=== PATIENT | male | born 1965 | race Caucasian/White ===

== ENCOUNTER → 2018-03-10 | Outpatient (CLI) | payer MEDICAID ==
--- NOTE | 2018-03-10 13:51 | XR ---
EXAM TYPE: LUMBAR SPINE X RAY SERIES COMPARISON: NONE HISTORY: Back pain TECHNIQUE: 4 views are submitted. FINDINGS: Alignment is anatomic. The pedicles are intact. The transverse processes are intact. Could not excl ude a unilateral spondylolysis on the right at L5. There is a slight anterolisthesis and a vacuum dis c compatible severe degenerative disc disease. Hypertrophic spurring seen at multiple levels with mil d multilevel additional degenerative disc disease. IMPRESSION: 1. Vacuum disc and severe degenerative disc disease L5-S1 with suspected spondylolysis on the right a nd evidence of facet arthropathy. This likely results in foraminal encroachment and could be correlat ed with MRI as clinically warranted.
== END ==
LOC: RADXRYALE 13:29
PROVIDERS: ATTEND Internal Medicine
DX: M51.17 Intervertebral disc disorders with radiculopathy, lumbosacral region (principal); M46.96 Unspecified inflammatory spondylopathy, lumbar region
CPT/HCPCS: 72110

== ENCOUNTER 2022-10-01 10:19 | Day surgery (SDC) | payer BC, MEDICAID ==
[2022-09-26 17:01] VITALS: BMI 35.6
[~2022-10-01 10:19] MED LIST: LACTATED RINGERS 1,000 ML IV SCH; LIDOCAINE 1% (10MG/ML) FOR IV START INTRADERMA PRN
[2022-10-01 10:56] VITALS: TEMP 97.7
[2022-10-01] MEDS ORDERED: PROPOFOL 10 MG/ML 20 ML VIAL IV ONE (11:24)
[2022-10-01] MEDS ORDERED: LIDOCAINE 2% INJ 20 MG/ML (2 ML VIAL) ONE (11:24)
--- NOTE | 2022-10-01 11:41 | P.PCN ---
Date of Procedure: 10/01/22 Procedure(s) Performed: BRIEF HISTORY: Patient is a 56-year-old pleasant white male scheduled for an elective colonoscopy as a part of evaluation of prior history of colon polyps. Last colonoscopy was 8 years ago. PROCEDURE PERFORMED: Colonoscopy with biopsy. PREOPERATIVE DIAGNOSIS: History of colon polyps. IV sedation per Anesthesia. PROCEDURE: After informed consent was obtained, the patient, was brought into the endoscopy unit. IV sedation was administered by Anesthesia under continuous monitoring. Digital rectal examination was normal. Initially the Olympus CF-160 flexible video colonoscope was then inserted in the rectum, gradually advanced into the cecum without any difficulty. Careful examination was performed as the scope was gradually being withdrawn. Ileocecal valve and the appendiceal orifice were visualized and appeared normal. Prep was excellent. Mucosa of the cecum, ascending colon, appeared normal. In the transverse colon there was a 5 mm flat polyp that was removed by cold biopsy. Rest of the transverse colon, descending colon, sigmoid colon, and rectum appeared normal. Retroflexion was performed in the rectum and no lesions were seen. The patient tolerated the procedure well. IMPRESSION: 5 mm flat transverse colon polyp status post cold biopsy Rest of the colon appeared normal RECOMMENDATIONS: Findings of this examination were discussed with the patient as his family.. He was advised to follow with the biopsy sites. The biopsy reveals adenoma he can have a repeat colonoscopy in 5 years
[2022-10-01 11:48] VITALS: RESP 16
[2022-10-01 11:56] VITALS: BP 156/82; PULSE 62
== END 2022-10-01 12:12 | disposition home or self-care (01) ==
LOC: ORWHC2ENDO 10:19
PROVIDERS: ATTEND Internal Medicine Gastroenterology
DX: Z12.11 Encounter for screening for malignant neoplasm of colon (principal); D12.3 Benign neoplasm of transverse colon; Z86.010 Personal history of colon polyps; Z88.0 Allergy status to penicillin
CPT/HCPCS: 88305; 45380; J2704; J2001